=== PATIENT | female | born 1975 | race Caucasian/White ===

== ENCOUNTER 2022-04-25 18:32 | Emergency (ER) | payer BC, SELFPAY ==
[2022-04-25] MEDS ORDERED: Promethazine HCl 25 MG/ML VIAL ONE (19:18)
[2022-04-25] MEDS ORDERED: Pantoprazole 40 MG VIAL ONE (19:18)
[2022-04-25] MEDS ORDERED: Sodium Chloride 0.9% 1,000 ML ONE (19:18)
[2022-04-25 19:52] LABS: #Basophils 0.1 thou/uL (0.0-0.2); #Lymphocytes 0.4 thou/uL (1.20-3.40); #Monocytes 0.8 thou/uL (0.11-0.59); #Neutrophils 6.1 thou/uL (1.40-6.50); %Basophils 0.9 % (0.0-1.0); %Eosinophils 0.1 % (0.0-10.0); %Lymphocytes 4.9 % (21.0-51.0); %Monocytes 10.6 % (0.0-10.0); %Neutrophils 83.5 % (42.0-75.0); Hemoglobin 13.1 g/dL (12.0-16.0); Mean Corpuscular HGB CONC 31.4 g/dL (32.0-36.0); Mean Corpuscular Hemoglobin 30.6 pg (27.0-31.0); Mean Corpuscular Volume 97.7 fL (78.0-98.0); Mean Platelet Volume 8.3 fL (7.4-10.4); Platelet Count 252 thou/uL (130-400); RBC Distribution Width 11.7 % (11.5-14.5); Red Blood Cell (RBC) Count 4.27 mill/uL (4.20-5.40); White Blood Cell (WBC) Count 7.3 thou/uL (4.8-10.8)
[2022-04-25 19:59] LABS: Clarity SL HAZY (Clear); Glucose, Urine (Dipstick) Negative (Negative); Leukocyte Negative (Negative); Nitrite Negative (Negative); Protein, Urine (Dipstick) 30 mg/dL (Neg-Trace); Specific Gravity, Urine 1.025 (1.005-1.030); pH, Urine 5.5 (5.0-9.0)
[2022-04-25 20:00] LABS: Bilirubin Small (Negative); Blood, Urine Small (Negative); Ketone, Urine > or equal to 80 mg/dL (Negative); Urobilinogen 0.2 mg/dL (Less than 2)
[2022-04-25 20:02] LABS: Bacteria/HPF 1+ HPF (None Seen); Mucous/LPF 1+ LPF (<2+); RBC/HPF 0-3 HPF (0-3); Squamous Epithelial 0-3 HPF (0-3); WBC/HPF 0-3 HPF (0-3)
[2022-04-25 20:06] LABS: ALT (SGPT) 18 U/L (8-55); AST (SGOT) 19 U/L (5-34); Albumin 4.4 g/dL (3.5-5.0); Alkaline Phosphatase 57 U/L (40-110); Anion Gap 17 mmol/L (10-20); BUN (Urea Nitrogen) 19 mg/dL (7.0-18.7); Bilirubin, Total 0.3 mg/dL (0.2-1.2); Calc. Creatinine Clearance 0 mL/min (70-130); Calcium 9.2 mg/dL (7.8-10.44); Carbon Dioxide 24 mmol/L (22-29); Chloride 103 mmol/L (98-107); Globulin 3.1 g/dL (2.4-3.5); Glucose 118 mg/dL (70-105); Potassium 3.7 mmol/L (3.5-5.1); Protein, Total 7.5 g/dL (6.0-8.3); Sodium 140 mmol/L (136-145)
[2022-04-25] MEDS ORDERED: Cephalexin 250 MG CAP ONE (20:18)
== END 2022-04-25 20:42 | disposition home or self-care (01) ==
LOC: NAV ERS 18:32
DX: A08.4 Viral intestinal infection, unspecified (principal); U07.1 COVID-19; N39.0 Urinary tract infection, site not specified; E86.0 Dehydration
CPT/HCPCS: 80053; 81003; 81015; 85025; 87086; 96365; 96375; C9113; J2550; J7050